=== PATIENT | male | born 1970 | race Hispanic/Latino ===

== ENCOUNTER → 2018-04-03 | Outpatient (CLI) | payer OTHER ==
[2018-04-03 17:39] LABS: FREE T3 2.5 PG/ML (2.2-4.0); THYROID STIMULATING HORMONE 1.53 uIU/ML (0.358-3.740); THYROXINE (T4) 8.7 UG/DL (4.5-12.0)
== END ==
LOC: M LAB 16:30
PROVIDERS: ATTEND Ophthalmology
DX: H49.23 Sixth [abducent] nerve palsy, bilateral (principal)

== ENCOUNTER → 2019-12-10 | Outpatient (CLI) | payer OTHER ==
[~2019-12-10] MED LIST: ASPI-1 PO; ELIQ2.5T PO; IBUP-1022; KEFL500C17 PO; OXYC1TAB23; PERC5TAB12 PO; SULF1TAB93
== END ==
LOC: M LABSMTC 12:46
PROVIDERS: ATTEND Orthopaedic Surgery
DX: Z11.59 Encounter for screening for other viral diseases (principal)

== ENCOUNTER 2019-12-27 15:28 | Inpatient (IN) | payer OTHER ==
[~2019-12-27] VITALS: Ht 170.2 cm; Wt 71.7 kg
[2019-12-27] MEDS ORDERED: OXYC1TAB23 (16:22)
[2019-12-27] MEDS ORDERED: SULF1TAB93 ×2 (16:22)
[2019-12-27] MEDS ORDERED: IBUP-1022 (16:22)
[2019-12-27] MEDS ORDERED: fentaNYL 100 MCG/2 ML INJECTION (J3010) As Ordered ONE (17:29)
[2019-12-27] MEDS ORDERED: MIDAZOLAM INJ 2MG/2ML VIAL (J2250 PER 1MG) As Ordered ONE (17:29)
[2019-12-27] MEDS ORDERED: propofoL 200 MG/20 ML VIAL As Ordered ONE ×2 (17:31→18:53)
[2019-12-27] MEDS ORDERED: LIDOCAINE 2% 100MG/5ML SDV (FOR ANES.) As Ordered ONE (17:31)
[2019-12-27] MEDS ORDERED: ceFAZolin 2 GM/D5W 50 ML IV BAG (J0690 PER 500MG) As Ordered ONE (18:16)
[2019-12-27] MEDS ORDERED: BUPIVACAINE HCL 0.25% 30ML VIAL As Ordered ONE (19:08)
[2019-12-27] MEDS ORDERED: BUPIVACAINE HCL 0.5% 30 ML VIAL As Ordered ONE (19:09)
[2019-12-27] MEDS ORDERED: LR 1,000 ML IV SCH ×2 (19:45→21:30)
[2019-12-27] MEDS ORDERED: ONDANSETRON 4MG/2ML VIAL IV PRN ×2 (19:45→21:30)
[2019-12-27] MEDS ORDERED: oxyCODONE 5MG TAB PO PRN (19:45)
[2019-12-27] MEDS: fentaNYL 100 MCG/2 ML INJECTION (J3010) IV PRN ×4 (19:58→20:19)
[2019-12-27] MEDS: HYDROMORPHONE HCL 0.5 MG/ 0.5 ML SYRINGE (J1170 PER 1) IV PRN ×2 (20:25→20:35)
[2019-12-27 21:06] VITALS: BP 139/96
[2019-12-27] MEDS ORDERED: VANCOMYCIN HCL 750 MG, VIAL MATE ADAPTER 1 EACH in D5W 250 ML IV ONE ×2 (22:00→23:00)
[2019-12-27 22:57] LABS: BLOOD UREA NITROGEN 6 MG/DL (7-18); CALCIUM LEVEL 8.5 MG/DL (8.5-10.1); CARBON DIOXIDE LEVEL 28 MEQ/L (21-32); CHLORIDE LEVEL 102 MEQ/L (98-107); CREATININE FOR GFR 0.74 MG/DL (0.70-1.30); GLOMERULAR FILTRATION RATE > 60.0 (>60); GLUCOSE, FASTING 99 MG/DL (70-100); POTASSIUM SERUM 4.3 MEQ/L (3.5-5.1); SODIUM LEVEL 136 MEQ/L (136-145)
[2019-12-27] MEDS: PERCOCET 5MG/325MG TAB PO PRN (23:26)
[2019-12-28 02:00] VITALS: BP 116/72
[2019-12-28] MEDS: VANCOMYCIN HCL 1,000 MG, VIAL MATE ADAPTER 1 EACH in D5W 250 ML IV SCH ×3 (05:56→21:29)
[2019-12-28 06:00] VITALS: BP 113/72
[2019-12-28] MEDS: PERCOCET 5MG/325MG TAB PO PRN ×3 (06:17→18:47)
[2019-12-28 06:26] LABS: HEMATOCRIT 38.7 % (42.0-52.0); HEMOGLOBIN 12.5 g/dl (13.5-17.5); MEAN CORPUSCULAR HEMOGLOBIN 28.5 pg (27.0-33.0); MEAN CORPUSCULAR HGB CONC 32.3 g/dl (32.0-36.5); MEAN CORPUSCULAR VOLUME 88.2 fl (80.0-96.0); PLATELET COUNT, AUTOMATED 390 10^3/uL (150-450); RED BLOOD COUNT 4.39 10^6/uL (4.30-6.10); WHITE BLOOD COUNT 11.5 10^3/uL (4.0-10.0)
[2019-12-28] MEDS ORDERED: ACETAMINOPHEN TAB 650MG DOSE (2X325MG) PO PRN (06:30)
[2019-12-28 06:50] LABS: ERYTHROCYTE SEDIMENTATION RATE 67 mm/hr (0-15)
[2019-12-28 06:56] LABS: BLOOD UREA NITROGEN 6 MG/DL (7-18); CALCIUM LEVEL 8.3 MG/DL (8.5-10.1); CARBON DIOXIDE LEVEL 28 MEQ/L (21-32); CHLORIDE LEVEL 100 MEQ/L (98-107); CREATININE FOR GFR 0.78 MG/DL (0.70-1.30); GLOMERULAR FILTRATION RATE > 60.0 (>60); GLUCOSE, FASTING 93 MG/DL (70-100); SODIUM LEVEL 136 MEQ/L (136-145)
[2019-12-28] MEDS: ASPIRIN 325 MG TAB PO SCH (08:43)
[2019-12-28 10:00] VITALS: BP 127/75
[2019-12-28 14:00] VITALS: BP 120/74
[2019-12-28] MEDS: cefTRIAXone SOD 2 GM in D5W MINI-BAG PLUS 50 ML IV SCH (16:31)
[2019-12-28 16:45] VITALS: BP 119/82
[2019-12-28 22:00] VITALS: BP 129/77
[2019-12-29] MEDS: PERCOCET 5MG/325MG TAB PO PRN ×4 (02:29→20:19)
[2019-12-29] MEDS: VANCOMYCIN HCL 1,000 MG, VIAL MATE ADAPTER 1 EACH in D5W 250 ML IV SCH ×4 (02:29→20:44)
[2019-12-29 06:00] VITALS: BP 139/74
[2019-12-29] MEDS ORDERED: PERC5TAB12 PO (08:06)
[2019-12-29] MEDS: ASPIRIN 325 MG TAB PO SCH (09:07)
[2019-12-29 14:00] VITALS: BP 120/81
[2019-12-29] MEDS: MORPHINE 4 MG/ML 1ML VIAL/SYRINGE (J2270) IV PRN ×3 (16:31→18:54)
[2019-12-29] MEDS ORDERED: PROHANCE 279.3MG/ML 15ML VIAL As Ordered ONE (17:11)
[2019-12-29] MEDS: cefTRIAXone SOD 2 GM in D5W MINI-BAG PLUS 50 ML IV SCH (17:20)
--- NOTE | 2019-12-29 19:31 | REPVR ---
PROCEDURE INFORMATION: Exam: MR Left Lower Extremity Joint Without and With Contrast, Knee Exam date and time: 12/29/2019 7:02 PM Age: 49 years old Clinical indication: Pain; Knee; Left; Prior surgery; Surgery date: Post-operative (0-2 days); Surgery type: Acl repair on 12/14. Surg again 2 days ago for hematoma. ; Additional info: Left knee infection rule out osteo TECHNIQUE: Imaging protocol: MR of the Left lower extremity joint without and with contrast. Exam focused on the knee. Contrast material: PROHANCE; Contrast volume: 14 ml; Contrast route: INTRAVENOUS (IV); COMPARISON: No relevant prior studies available. FINDINGS: Large knee joint effusion is present, with synovial enhancement suggesting synovitis. Patient has undergone a prior ACL reconstruction. Graft appears somewhat diminutive and there is fluid signal within the tibial and femoral tunnels, with interference screws present. Adjacent significant bone marrow edema within the lateral femoral condyle around the tibial tunnel and to a lesser extent in the medial tibial plateau. No linear fracture or concerning osseous lesion. Gadolinium-enhanced images demonstrate enhancement involving the lateral the distal femur and proximal tibia around the tunnels and there is a peripherally enhancing fluid tract superficial to the tibial tunnel and extending to the skin surface measuring 2 x 2 cm cross-sectional and 3.5 cm craniocaudal. MCL, IT band, fibular collateral ligament, biceps femoris tendon and popliteus tendon appear intact and the PCL shows normal morphology and signal. Lateral meniscus shows normal morphology and signal. Medial meniscus demonstrates intrasubstance posterior horn T2 signal without evidence of a linear communicating tear No high-grade chondral loss involving the knee. IMPRESSION: ACL reconstruction, with large knee joint effusion, and Salas synovitis and concern for osteomyelitis involving the lateral femoral condyle around the femoral tunnel and interference screws, with irregularity of the lateral cortex and significant bone marrow edema and enhancement. Concern for osteomyelitis involving the proximal tibia around the tibial tunnels, with superficial subcutaneous fluid collection with peripheral enhancement which could also be infected. Electronically signed by: Tomás Thurman On 12/29/2019 19:31:43 PM
[2019-12-29] MEDS ORDERED: PERCOCET 5MG/325MG TAB PO PRN (20:00)
[2019-12-29 22:00] VITALS: BP 141/88
[2019-12-29] MEDS: VANCOMYCIN HCL 500 MG in D5W MINI-BAG PLUS 100 ML IV SCH (23:14)
[2019-12-30] MEDS: LR 1,000 ML IV SCH ×2 (00:12→08:55)
[2019-12-30] MEDS: PERCOCET 5MG/325MG TAB PO PRN ×4 (00:19→15:16)
[2019-12-30] MEDS: VANCOMYCIN HCL 1,000 MG, VIAL MATE ADAPTER 1 EACH in D5W 250 ML IV SCH ×2 (02:14→08:55)
[2019-12-30] MEDS: VANCOMYCIN HCL 500 MG in D5W MINI-BAG PLUS 100 ML IV SCH ×2 (04:03→08:55)
[2019-12-30 06:00] VITALS: BP 109/76
--- NOTE | 2019-12-30 07:46 | CR ---
DATE OF CONSULTATION: 12/28/2019 REASON FOR CONSULTATION: Postoperative wound infection. ATTENDING PHYSICIAN: Dr. Robertson HISTORY OF PRESENT ILLNESS: Mr. Ghosh is a 49-year-old man who originally tore his anterior cruciate ligament (ACL) approximately 10 years ago and had an ACL repair. The patient stated that in October 2018 he had reinjured his ACL and had presented to [facility] at the time and had a repair; however, at the time, they had taken out his previous cadaver graft and had filled in holes where screws were present. The patient was planned to have revision of the surgery 6 months from that date; however, COVID had happened, and the patient's surgery was canceled. 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 He was referred to the orthopedic group in [place] for revision of his ACL. He had this completed on December 14. The patient's surgery was uneventful. Approximately 4-7 days after his surgery on December 14 he had developed some pain and swelling in the medial area of his left knee, where his surgery had occurred. The patient had presented to his orthopedic surgeon on December 27, at which point he aspirated the area of swelling, which revealed blood and likely hematoma; however, when placing the aspirate into a bucket, it was noticed that the blood had some cloudy appearance to it. The patient was started on Bactrim for possible infection; however, no cultures were sent, as the cloudiness was demonstrated after placing into the bucket. The patient was continued on Bactrim and was instructed to call his orthopedic surgeon if his pain had worsened or he developed fevers over the weekend. The patient ended up calling in stating that he had worsening pain and swelling. The patient was taken to the operating room (OR) yesterday on December 26 to have the hematoma drained. Additionally, cultures were taken from both the hematoma as well as into the joint space. There was no obvious- looking bone infection, and the site appeared in somewhat good condition. The patient was started on vancomycin empirically. Today, the patient states that he does have left knee pain, which is expected from his surgery. He denies ever having any fevers, chills. He denies any rigors. He states that he has had swelling in his knee for some time. He denies any previous infection of his left knee; however, according to the patient's orthopedic surgeon, it was found that when he had his first surgery at [facility] there was supposedly some form of infection at one point where the patient was treated with antibiotics; however, this is unclear. MEDICAL HISTORY: 1. History of torn ACL 10 years ago with revision in October and then revision again in December 26. 2. History of melanoma on the abdomen, status post resection. SURGICAL HISTORY: 1. Left ACL repair 10 years ago and then a revision in October and then a second revision on December 26. 2. History of melanoma with resection. 3. Left inguinal hernia surgery with mesh placement. 4. Right shoulder surgery. FAMILY HISTORY: The patient denies any family history of coronary artery disease or sudden cardiac . SOCIAL HISTORY: Patient denies any history of smoking or intravenous (IV) illicit drug use. He lives at home with his . He is normally fairy active, however, recently has had decreased activity secondary to his torn ACL. INPATIENT ANTIBIOTICS: - ceftriaxone 2 grams every 24 hours IV - vancomycin 1000 mg every 8 hours IV REVIEW OF SYSTEMS: CONSTITUTIONAL: Patient denies any fevers, chills, nausea, vomiting, decreased appetite or unintentional weight loss or weight gain. HEENT: Patient denies any headaches. Denies any changes in vision. Denies any dysphagia or odynophagia. CARDIOVASCULAR: Patient denies any chest pain, palpitations, feelings of the heart racing. He denies any edema in the legs. PULMONARY: Patient denies any shortness of breath. He denies any cough, wheezing, increased sputum production. ABDOMINAL: Patient denies any abdominal pain. He denies any nausea or vomiting. He denies any constipation, diarrhea. GENITOURINARY: Patient denies any dysuria, increased frequency or urgency. EXTREMITIES: Patient denies any increased lower extremity swelling. He does admit to left knee pain with swelling around his site. He admits to difficulty with ambulation due to this. HEMATOLOGIC/LYMPHATIC: Patient denies any history of easy bruising or bleeding. Denies any history of pulmonary embolus (PE) or deep venous thrombosis (DVT). ENDOCRINE: Patient denies any head intolerance or cold intolerance. PHYSICAL EXAMINATION: VITAL SIGNS: Temperature 98.7, pulse oximetry 96% on room air, pulse 82, respiratory rate 18, blood pressure 119/82. GENERAL: Patient is awake, alert, oriented. He does not appear in any acute distress. He is lying in bed comfortably. He is conversive. HEENT: Atraumatic, normocephalic. Eyes are anicteric. Trachea is midline. Mucous membranes are pink and moist. CARDIOVASCULAR: Normal S1, S2, regular rate and rhythm. No clicks, rubs, or murmurs. PULMONARY: Clear vesicular breath sounds bilaterally. Good respiratory effort. No wheezes, rhonchi, or rales. ABDOMEN: Soft, nondistended, nontender. No rebound tenderness or guarding. Normoactive bowel sounds throughout. EXTREMITIES: Patients left extremity has moderate swelling around the knee. Examination demonstrates one midline incision down his left knee with two incisions laterally and medially to this. A fourth incision is approximately 2 cm inferior to his patella and medial. There is a small amount of erythema surrounding as well as some soft tissue swelling. There is no purulent drainage demonstrated. Patient has full and equal pulse, bilateral upper and lower extremities. NEUROLOGIC: No focal neurologic deficits. PSYCHIATRIC: Mood and affect appear appropriate. LABORATORY STUDIES: Hematology: White blood cells 11.5, hemoglobin 12.5, hematocrit 38.7. Chemistries: Sodium 136, potassium 4.0, chloride 100, carbon dioxide 28, BUN 6, creatinine 0.78, calcium 8.3. Inflammatory markers: ESR 67. CRP from December 26.8. CRP from December 27.1. Microbiology: Gram stain and wound cultures from left knee currently pending. ASSESSMENT AND PLAN: Surgical site infection/postoperative wound infection with hematoma. Patient presented with a hematoma, found to be infected. He has been taken to the OR and had this hematoma evacuated. It appears from surgery that there is no apparent joint infection; however, cultures were taken from both the joint space as well as the aspirate. The patient is on vancomycin. Rocephin 2 grams has been added today for some gram-negative coverage. Regarding the patient's cultures, he had been started on Bactrim outpatient, and it is likely that his cultures will be negative from being on antibiotics before coming to the hospital. Plan is to continue both Rocephin and vancomycin and await cultures to result. If negative, will likely need to great for at least 2 weeks. If positive, this will depend on whether the bacteria is in his joint space, indicating joint infection versus just an infected hematoma. RECOMMENDATIONS: Continue Rocephin 2 grams every 24 hours and vancomycin every 8 hours and await cultures results. Tailor depending on culture results. MTDD
[2019-12-30 08:45] LABS: BLOOD UREA NITROGEN 4 MG/DL (7-18); CALCIUM LEVEL 8.8 MG/DL (8.5-10.1); CARBON DIOXIDE LEVEL 29 MEQ/L (21-32); CHLORIDE LEVEL 97 MEQ/L (98-107); CREATININE FOR GFR 0.57 MG/DL (0.70-1.30); GLOMERULAR FILTRATION RATE > 60.0 (>60); GLUCOSE, FASTING 98 MG/DL (70-100); POTASSIUM SERUM 3.6 MEQ/L (3.5-5.1); SODIUM LEVEL 134 MEQ/L (136-145)
[2019-12-30] MEDS: ASPIRIN 325 MG TAB PO SCH (08:54)
[2019-12-30] MEDS: ceFAZolin SOD 2 GM in IV 1 EA IV SCH ×2 (12:21→17:54)
[2019-12-30 14:00] VITALS: BP 139/83
[2019-12-30] MEDS ORDERED: KEFL500C17 PO (15:08)
[2019-12-30] MEDS ORDERED: KETOROLAC 30 MG/ML 1ML VIAL IV ONE (15:30)
[2019-12-30] MEDS ORDERED: ASPI-1 PO (16:22)
--- NOTE | 2020-01-10 12:56 | RO ---
DATE OF OPERATION: 12/27/2019 PREOPERATIVE DIAGNOSIS: Left knee pretibial hematoma infection. POSTOPERATIVE DIAGNOSIS: Left knee pretibial hematoma infection. PROCEDURE: * Left knee proximal tibial infected hematoma incision and drainage. * Left knee arthroscopic irrigation and debridement. SURGEON: Raghav Farr M.D. ANESTHESIA: Spinal. IV FLUIDS: Lactated Ringers. ESTIMATED BLOOD LOSS: 25 mL IMPLANTS: None. SPECIMEN: Infected hematoma fluid for aerobics, anaerobic, fungal culture x2 and soft tissue for culture, aerobic and anaerobic. CLOSURE: Nylon. INDICATIONS: The patient is a 49-year-old gentleman that underwent a left knee revision, ACL reconstruction with [id number]-myyf autograft and a medial meniscus repair approximately two weeks ago. He initially had had a left knee ACL reconstruction with allograft nine years ago and then had osteolysis of his tunneled, had a bone grafting procedure at [place] over a year ago. He felt that after that procedure, he always had some increased pressure and swelling at the tibial tunnel site. So at the patients postoperative visit, he noticed some swelling and pressure at the old incision, his recent surgical incision and there was some bogginess there. Aspiration in the office revealed findings consistent with a hematoma with possible cloudiness to suggest early secondary infection. He had worsening pain over the weekend and in the office, he had developed a cellulitis at the medial tibial plateau. No sign of infection at his incision, no sign of septic joint. At this point, I recommended incision and drainage of the pretibial fluid collection and a prophylactic irrigation and debridement of the joint to prevent this from turning into a deep infection. He agreed to proceed with surgery after we discussed the risks and benefits. PROCEDURE: In the preoperative holding area, the patients left leg was marked. He was brought to the operating room where spinal anesthesia was induced. Sedation was also initiated. A well-padded tourniquet was applied to the left thigh. He had a grade 1A Anne. The left leg was then prepped and draped in normal sterile fashion with Betadine. Prior to incision, a timeout was performed per hospital protocol. Prophylactic antibiotics were held so we could send cultures. The left leg was exsanguinated via gravity and then inflated to 275 mmHg. A 15 blade was used to make an incision at the distal aspect of his old medial tibial incision. A cloudy hematoma was encountered and this fluid was sent for aerobic and anaerobic and fungal culture. I would estimate that about 3 mL of purulent fluid were evacuated. There was significant thickened scar tissue from his prior surgeries and most of the infected fluid tracked distally towards his old tibial drill site. In case there was any old infection harbored within the old scar tissue, I elected to ellipse out this incision with a 15 blade and all subcutaneous scar tissue was sharply excised. There was minimal purulence proximally. A curette was then used to scrape the deep soft tissues along the medial tibia both proximally and distally. A rongeur was used to remove some scar tissue as well. At this point milking the soft tissues proximally and towards the BTB incision did not reveal any gross purulence. Far distal, I was able to milk out a small amount of cloudy fluid, would suggest the infection as emanating from a distal source. At this point, I was visualizing the SwiveLock anchor which was the backup screw for the tibial fixation. I did not visualize the interference screw or the graft in the tibial tunnel. I then used six liters of irrigation via cystoscopy tubing to irrigate the pretibial tissues and the surgical field. Following the irrigation, new drapes were placed. All gloves were changes and there was no longer any infected fluid or tissue. We then set up for the arthroscopy. An 11 blade was used to open up the prior medial and lateral portals. The 30 degree arthroscope was introduced into the joint. There was scar tissue encountered in all compartments but no evidence of any purulence. The shaver was then used to perform a synovectomy and arthroscopic lysis of adhesions, removing all early scar tissue around the graft, anterior compartment, medial compartment, medial gutter, suprapatellar pouch, lateral gutter and the lateral compartment. The ACL graft was inspected and looked intact and healthy. I used six liters of irrigation. The knee was repeatedly flexed and extended. The popliteal fossa and popliteal hiatus were repeatedly palpated and milked to ensure any pockets of fluid were thoroughly irrigated. Following the irrigation and debridement, the knee was drained. The portals were closed with nylon suture. I then used 2-0 PDS to close the pretibial incision for a subcuticular closure. The central third of that incision was left loosely closed with that 2-0 layer and then I used a new 3-0 Ethibond in a horizontal mattress fashion to close the incision but ensured that at the central aspects, it was easy for any fluid to drain. I then injected 30 mL of 1/2% Marcaine without epinephrine. The tourniquet was let down with excellent reperfusion. A bulky, sterile dressing was applied. He was transferred to the PACU in stable condition. COMPLICATIONS: None. DISPOSITION: The patient is going to be kept for IV antibiotics, specifically for IV vancomycin per pharmacy dosing. We are going to follow up on OR cultures. I should have mentioned that once the OR cultures had been sent, we then administered two grams of IV cefazolin intraoperatively. Once we have an infectious disease consultation and possible OR culture results, we will come up with a definitive antibiotic plan. At this point, there is no evidence for septic arthritis. There is no threatening of the graft, the procedure performed to prevent this from turning into a septic joint. EVIE
--- NOTE | 2020-02-07 07:45 | DS ---
DATE OF ADMISSION: 12/27/2019 DATE OF DISCHARGE: 12/30/2019 ADMITTING DIAGNOSIS: Left knee pretibial hematoma infection. ADDITIONAL DIAGNOSES: None. DISCHARGE DIAGNOSIS: Left knee pretibial hematoma, underlying infection of the left pretibial area as well as underlying osteomyelitis. OPERATION PERFORMED: Left knee proximal tibia infected hematoma incision and drainage as well as left knee arthroscopic irrigation and drainage. HISTORY OF PRESENT ILLNESS: This is a 49-year-old male patient that presented to the office after an ACL revision and reconstruction with increased pain and symptoms consistent with a hematoma, possibly a secondary infection. We then elected to have him undergo an I&D on the left knee, so he was admitted for I&D on the left knee, hematoma of the pretibial area. HOSPITAL COURSE: The patient was admitted on day of surgery, underwent an I&D on the left proximal tibia infected hematoma and left knee arthroscopic I&D of the knee joint. During the postoperative period an MRI was completed and it was consistent with most likely osteomyelitis. Infectious Disease was involved in his care with the recommendations for antibiotic coverage per the I&D Team. On the day of discharge he was 50% weight bearing on the left lower extremity. He will use crutches as directed. He will follow up in our office in 7-10 days. He will also follow up with the Infectious Disease office as well as directed through their office. He will take the oral pain medications for pain control and will also complete the antibiotics as directed by Infectious Disease. He was given instructions to include but not limited to wound monitoring, activity limitations, weight bearing status and his follow up in both our office and with Infectious Disease office. He will also resume any preoperative medications. Please refer to the medical record for further details. NOTE: History of melanoma should be added to the patient's past medical history. EVIE
== END 2019-12-30 19:15 | disposition home or self-care (01) | DRG 857 ==
LOC: M SDC 15:28 → M MSPAV 21:06 → M MS5PR 12-28 16:50 → M SDC 12-29 07:33 → M MS5PR 12-29 07:34
PROVIDERS: ADMIT Orthopaedic Surgery; ATTEND Orthopaedic Surgery
PROC: 0JBP0ZZ Excision of Left Lower Leg Subcutaneous Tissue and Fascia, Open Approach (ICD-10-PCS; principal; 2019-12-27 08:54)
DX: T81.42XA Infection following a procedure, deep incisional surgical site, initial encounter (principal); M96.840 Postprocedural hematoma of a musculoskeletal structure following a musculoskeletal system procedure; L03.116 Cellulitis of left lower limb; Y83.8 Other surgical procedures as the cause of abnormal reaction of the patient, or of later complication, without mention of misadventure at the time of the procedure

== ENCOUNTER → 2020-01-04 | Outpatient (CLI) | payer OTHER | LOC: M LAB 15:09 | PROVIDERS: ATTEND Orthopaedic Surgery | DX: Z47.89 Encounter for other orthopedic aftercare (principal) ==

== ENCOUNTER → 2020-01-25 | Outpatient (CLI) | payer OTHER | LOC: M LAB 12:41 | PROVIDERS: ATTEND Orthopaedic Surgery | DX: S83.512D Sprain of anterior cruciate ligament of left knee, subsequent encounter (principal); X58.XXXD Exposure to other specified factors, subsequent encounter ==

== ENCOUNTER → 2020-01-28 | Outpatient (REF) | payer OTHER ==
[2020-01-28 10:41] LABS: SOURCE, BODY FLUID LFT KNEE; SYNOVIAL FLUID COLOR RED (YELLOW)
[2020-01-28 11:41] LABS: CRYSTALS, BODY FLUID NONE SEEN (NONE SEEN); SOURCE, BODY FLUID CRYSTALS LFT KNEE
[2020-01-28 12:02] LABS: BODY FLUID RHEUMATOID SCREEN NEGATIVE (NEGATIVE); MUCIN CLOT TEST 4+ (4+)
== END ==
LOC: M LAB REF 09:55
PROVIDERS: ATTEND Orthopaedic Surgery
DX: M25.462 Effusion, left knee (principal)

== ENCOUNTER 2020-02-01 18:17 | Inpatient (IN) | payer OTHER ==
[~2020-02-01] VITALS: Ht 170.2 cm; Wt 68.9 kg
[~2020-02-01 18:17] MED LIST changes: -ELIQ2.5T PO
[2020-02-01] MEDS ORDERED: NS 1,000 ML IV SCH (19:00)
[2020-02-01 19:15] LABS: BASO % 0.5 % (0.0-1.0); EOS # 0.1 10^3/uL (0.0-0.5); EOS % 1.7 % (0.0-3.0); HEMATOCRIT 36.5 % (42.0-52.0); HEMOGLOBIN 11.4 g/dl (13.5-17.5); LYMPH # 2.1 10^3/uL (1.5-5.0); LYMPH % 35.4 % (24.0-44.0); MEAN CORPUSCULAR HEMOGLOBIN 26.6 pg (27.0-33.0); MEAN CORPUSCULAR HGB CONC 31.2 g/dl (32.0-36.5); MEAN CORPUSCULAR VOLUME 85.1 fl (80.0-96.0); MONO # 0.5 10^3/uL (0.0-0.8); MONO % 8.8 % (0.0-5.0); NEUTROPHILS # 3.1 10^3/uL (1.5-8.5); NEUTROPHILS % 53.3 % (36.0-66.0); PLATELET COUNT, AUTOMATED 418 10^3/uL (150-450); RED BLOOD COUNT 4.29 10^6/uL (4.30-6.10); WHITE BLOOD COUNT 5.8 10^3/uL (4.0-10.0)
[2020-02-01 19:43] LABS: BLOOD UREA NITROGEN 9 MG/DL (7-18); CALCIUM LEVEL 8.9 MG/DL (8.5-10.1); CARBON DIOXIDE LEVEL 29 MEQ/L (21-32); CHLORIDE LEVEL 101 MEQ/L (98-107); CREATININE FOR GFR 0.62 MG/DL (0.70-1.30); GLOMERULAR FILTRATION RATE > 60.0 (>60); GLUCOSE, FASTING 77 MG/DL (70-100); POTASSIUM SERUM 4.1 MEQ/L (3.5-5.1); SODIUM LEVEL 136 MEQ/L (136-145)
[2020-02-01 21:07] LABS: C REACTIVE PROTEIN QUANTITATIV 3.82 MG/DL (0.00-0.30)
[2020-02-01] MEDS ORDERED: ACETAMINOPHEN 1000MG 100ML IV BTL (OFIRMEV) (J0131 PER 10MG) As Ordered ONE (21:45)
[2020-02-01] MEDS ORDERED: fentaNYL 100 MCG/2 ML INJECTION (J3010) As Ordered ONE (21:45)
[2020-02-01] MEDS ORDERED: dexameTHASONE 4 MG/ML 1ML VIAL (J1100 PER 1MG) As Ordered ONE (21:45)
[2020-02-01] MEDS ORDERED: ONDANSETRON 4MG/2ML VIAL As Ordered ONE (21:45)
[2020-02-01] MEDS ORDERED: propofoL 200 MG/20 ML VIAL As Ordered ONE (21:45)
[2020-02-01] MEDS ORDERED: LIDOCAINE 2% 100MG/5ML SDV (FOR ANES.) As Ordered ONE (21:45)
[2020-02-01] MEDS ORDERED: HYDROmorphone HCL 2 MG/ML 1ML VIAL (J1170) As Ordered ONE (21:45)
[2020-02-01] MEDS ORDERED: ceFAZolin 2 GM/D5W 50 ML IV BAG (J0690 PER 500MG) As Ordered ONE (21:51)
[2020-02-01] MEDS ORDERED: BUPIVACAINE HCL 0.5% 30 ML VIAL As Ordered ONE (21:52)
[2020-02-01] MEDS ORDERED: KETOROLAC 60MG 2ML VIAL As Ordered ONE (22:51)
[2020-02-02] MEDS ORDERED: diphenhydrAMINE 25MG CAP PO PRN (00:45)
[2020-02-02] MEDS ORDERED: fentaNYL 100 MCG/2 ML INJECTION (J3010) IV PRN (00:45)
[2020-02-02] MEDS ORDERED: MEPERIDINE INJ 25 MG/ML VIAL (J2175) IV PRN (00:45)
[2020-02-02] MEDS ORDERED: MIRALAX *UNIT DOSE* 17GM PACKET PO PRN (00:45)
[2020-02-02] MEDS ORDERED: PERCOCET 5MG/325MG TAB PO PRN (00:45)
[2020-02-02] MEDS ORDERED: MORPHINE 4 MG/ML 1ML VIAL/SYRINGE (J2270) IV PRN (00:45)
[2020-02-02] MEDS ORDERED: oxyCODONE 5MG TAB PO PRN (00:45)
[2020-02-02] MEDS ORDERED: METOCLOPRAMIDE INJ 10MG/2ML VIAL (J2765 PER 1) IV PRN (00:45)
[2020-02-02] MEDS ORDERED: MOM 30ML SUSPENSION UDC PO PRN (00:45)
[2020-02-02] MEDS ORDERED: LR 1,000 ML IV SCH ×2 (00:45)
[2020-02-02] MEDS ORDERED: ONDANSETRON 4MG/2ML VIAL IV PRN ×3 (00:45→02:00)
[2020-02-02 03:00] VITALS: BP 109/79
[2020-02-02] MEDS: ceFAZolin SOD 2 GM in IV 1 EA IV SCH ×3 (03:05→21:12)
[2020-02-02 04:00] VITALS: BP 111/78
[2020-02-02 05:00] VITALS: BP 107/68
[2020-02-02 06:00] VITALS: BP 109/71
[2020-02-02 06:12] LABS: HEMATOCRIT 30.9 % (42.0-52.0); HEMOGLOBIN 9.9 g/dl (13.5-17.5); MEAN CORPUSCULAR HEMOGLOBIN 26.9 pg (27.0-33.0); PLATELET COUNT, AUTOMATED 365 10^3/uL (150-450); RED BLOOD COUNT 3.68 10^6/uL (4.30-6.10); WHITE BLOOD COUNT 5.6 10^3/uL (4.0-10.0)
[2020-02-02 06:39] LABS: ALBUMIN 2.8 GM/DL (3.2-5.2); ALT/SGPT 13 U/L (12-78); BILIRUBIN,DIRECT < 0.1 MG/DL (0.0-0.2); BILIRUBIN,TOTAL 0.3 MG/DL (0.2-1.0); BLOOD UREA NITROGEN 7 MG/DL (7-18); C REACTIVE PROTEIN QUANTITATIV 2.71 MG/DL (0.00-0.30); CALCIUM LEVEL 8.3 MG/DL (8.5-10.1); CARBON DIOXIDE LEVEL 26 MEQ/L (21-32); CHLORIDE LEVEL 102 MEQ/L (98-107); CREATININE FOR GFR 0.52 MG/DL (0.70-1.30); GLOMERULAR FILTRATION RATE > 60.0 (>60); GLUCOSE, FASTING 106 MG/DL (70-100); POTASSIUM SERUM 4.6 MEQ/L (3.5-5.1); SODIUM LEVEL 134 MEQ/L (136-145); TOTAL PROTEIN 6.5 GM/DL (6.4-8.2)
[2020-02-02 06:46] LABS: ERYTHROCYTE SEDIMENTATION RATE 53 mm/hr (0-15)
[2020-02-02] MEDS: ASPIRIN 81 MG CHEW TABLET PO SCH ×2 (09:09→21:12)
[2020-02-02] MEDS ORDERED: LIDOCAINE 1% MDV 20ML VIAL As Ordered ONE (10:51)
--- NOTE | 2020-02-02 12:22 | RO ---
DATE OF OPERATION: 02/01/2020 PREOPERATIVE DIAGNOSES: 1. Left knee septic arthritis. 2. Left knee pretibial fluid collection. POSTOPERATIVE DIAGNOSES: 1. Left knee septic arthritis. 2. Left knee pretibial fluid collection. 3. Left knee loose hardware. PROCEDURES: 1. Left knee arthroscopic incision and debridement, extensive synovectomy, chondroplasty and lysis of adhesions. 2. Left knee open incision and drainage of a pretibial fluid collection. 3. Left knee hardware removal. SURGEON: Raghav Farr MD DECK CADET: None. ANESTHESIA: General. IV FLUIDS: Lactated Ringer's. ESTIMATED BLOOD LOSS: 25 mL. SPECIMEN: Pretibial fluid collection x2 and left knee joint fluid x1 and left knee synovial tissue x2. DRAINS: Moe-Rivas x1. CLOSURE: Nylon. DESCRIPTION OF PROCEDURE: The patient was identified in the preoperative holding area and a written informed consent was obtained for surgery after discussing the risks and benefits. He was brought back to the operating room and placed supine on a well-padded OR table. General anesthesia was induced. A well-padded tourniquet was applied to the left thigh. The patient had full extension/flexion to 80 degrees despite being able to flex are recently has last week past 100. Stable to varus and valgus stress. The left leg was then prepped and draped in a normal sterile fashion. Preoperative antibiotics were held in order to send specimens. Timeout was then performed per hospital protocol. The left leg was exsanguinated via gravity and then a tourniquet inflated to 250 mmHg. A 15 blade was used to open the pretibial incision, the same incision as his last surgery. There was scant purulence basically a very superficial blister with scant purulence there. Metzenbaum scissors were used to dissect down to bone where there was no purulent fluid but there was some devitalized tissue that appeared infected. It was of a mucinous exudate-type consistency. The SwiveLock anchor for backup fixation was visualized. The sutures heading into the SwiveLock appeared loose. So, a combination of curettes and rongeur were then used to remove all infected-looking tissue; curettes were used to scrape the surgical field and then extending proximally towards the screw in the tibia. I then irrigated with nine liters of lactated Ringer's with cystoscopy tubing. Following this, one additional pocket of infected fluid was then encountered far medial basically tracking along the hamstrings. So, that was opened with Metzenbaum scissors then bluntly and then I irrigated with an additional three liters for a total of 12 liters. There was no remaining infected tissue or fluid. I should mention I had already excised with a 15 blade the skin edges where he had the superficial blister where there was the grossly purulent fluid, though it was very superficial. The computer systems technology instructor and myself changed gloves at this point and new drapes were placed. An anterolateral portal was made with an 11-blade and a 30-degree arthroscope introduced into the joint. There was extensive synovitis. There was cloudy fluid in the joint. Medial portal was developed under direct visualization and then an extensive synovectomy was carried out including the anterior compartment, superior pouch, medial and lateral gutters, medial and lateral compartment and then the posterior compartment was irrigated. So, the shaver was used to perform that extensive synovectomy. Great care was taken to remove all scar tissue or fibrinous-appearing tissue. Chondroplasty was performed in the far medial aspect of the medial femoral condyle. The medial meniscus repair was intact. The ischial graft was still intact. This was probed and found to be under good tension. Arthroscopy portals were switched and then the gutters were debrided further with the shaver. Again, this was a very extensive synovectomy. I then probed around the anterior cruciate ligament (ACL) insertion onto the femur and the tibia and then posteriorly the probe was used to break up any fluid in the posterior compartment. The scope was then placed down towards the popliteal hiatus and the posterior aspect of the knee was milked in case there was any infected fluid and a Tinoco's cyst; however, the patient's MRI this morning did not show one. So, I used nine liters of lactated Ringer's during this process. The patient did have improved range of motion to 110 degrees now. The patient still had a grade 1A Anne. It did feel slightly looser than pre-incision. At this point, I reinspected the tibial incision and the sutures heading into the SwiveLock remained lax and the SwiveLock anchor was loose. Therefore, I elected to use a tenodesis flag car driver to remove the SwiveLock in its entirety. I carefully assessed Anne's and I was placed with the end point. Sutures heading to the SwiveLock were also removed, and then I curetted the screw hole where the SwiveLock had been and then re-irrigated that as well. Gloves were changed again. Following additional irrigation of the tibial incision, I then placed the scope back into the joint. There was no unhealthy-appearing tissue. I felt that the ACL graft had good tension, the medial meniscal repair was intact other than some mild chondromalacia at the far medial aspect of the femoral condyle. There were no areas of high-grade chondromalacia, no evidence of chondrolysis. I then placed a size 19 drain under arthroscopic guidance exiting superolaterally at the femur. The drain was placed to bulb suction. I then closed the proximal tibial incision with 2-0 Monocryl and then running 3- 0 nylon, both monofilament sutures. I injected roughly 20 mL of 0.5% Marcaine without epinephrine at the incisions and into the joint. Tourniquet was let down with excellent reperfusion. I should have mentioned that following sending of the specimens for culture, we did administer 2 grams of IV cefazolin. Bulky sterile dressing was applied. The patient had a grade 1A Anne and he wasextubated and transferred to the post anesthesia care unit (PACU) in stable condition. DISPOSITION: We will obtain and infectious disease consultation. He will remain on 2 grams of IV cefazolin every 8 hours as his prior cultures grew out Methicillin-sensitive staph aureus (MSSA). The patient will require a PICC line from discussion for daptomycin. We will follow up on cultures postop day one. He will have aspirin for deep vein thrombosis (DVT) prophylaxis. He should work on range of motion and will be partial weightbearing. EVIE
[2020-02-02 15:41] VITALS: BP 116/74
--- NOTE | 2020-02-02 15:42 | REP ---
PROCEDURE NAME: PICC LINE INSERTION W/SITERITE SEDATION: None CLINICAL INFORMATION: Status post left knee infection PHYSICIAN: ESA Dugan PROCEDURE DESCRIPTION: The procedure was performed by ESA Acosta, under the direct supervision of Dr. Mcdaniels. The risks and benefits of the procedure were explained to the patient and an informed consent was obtained both verbally and written. Directly prior to the start of the procedure a formal time-out was completed in the procedure room. The right brachial vein was localized using ultrasound guidance. The skin was prepped and draped in sterile fashion. One mL of 1% lidocaine 10 mg/mL was used as a local anesthetic. Using ultrasound guidance the right brachial vein was cannulated, and a 0.018 guidewire was inserted and advanced to the level of SVC using fluoroscopic guidance. The needle was removed and a 4.5 Wallisian dilator and peel-away sheath was inserted over the guidewire. A 4.5 Wallisian single lumen catheter was cut to a length of 40 cm. The dilator was removed and the catheter was inserted over the guidewire with the tip ending at the level of the SVC. The peel-away sheath was removed and the catheter was flushed with heparinized saline as per hospital protocol. The catheter was affixed to the skin and a sterile dressing was applied. The patient tolerated the procedure well and there were no immediate complications. ESTIMATED BLOOD LOSS: Less than 5 mL COMPLICATIONS: None CONCLUSION: Successful PICC line insertion into the right brachial vein 0.1 minutes of fluoroscopy time was utilized for this procedure. Some fluoroscopic images are performed with last image hold technology. These images require no additional radiation. <Electronically signed by Kirsten Lamb > 02/02/20 1530 <Electronically signed by Scott Mcdaniels > 02/02/20 1539
[2020-02-02] MEDS ORDERED: SODIUM CHLORIDE 0.9% INJ 10 ML SYR IV PRN (18:45)
[2020-02-02 22:00] VITALS: BP 115/74
[2020-02-03] MEDS: ceFAZolin SOD 2 GM in IV 1 EA IV SCH ×3 (04:44→20:25)
[2020-02-03] MEDS: PERCOCET 5MG/325MG TAB PO PRN ×2 (04:44→20:25)
[2020-02-03] MEDS: SODIUM CHLORIDE 0.9% INJ 10 ML SYR IV SCH ×2 (04:47→18:18)
[2020-02-03] MEDS ORDERED: PERC5TAB12 PO ×2 (06:05→06:12)
[2020-02-03 06:48] VITALS: BP 115/75
[2020-02-03] MEDS ORDERED: ELIQ2.5T PO (07:48)
[2020-02-03] MEDS: ASPIRIN 81 MG CHEW TABLET PO SCH ×2 (10:11→20:25)
[2020-02-03 14:00] VITALS: BP 117/69
[2020-02-03 22:00] VITALS: BP 115/75
[2020-02-04] MEDS: SODIUM CHLORIDE 0.9% INJ 10 ML SYR IV SCH (05:00)
[2020-02-04] MEDS: ceFAZolin SOD 2 GM in IV 1 EA IV SCH (05:00)
[2020-02-04 06:00] VITALS: BP 108/73
[2020-02-04] MEDS: ASPIRIN 81 MG CHEW TABLET PO SCH (09:06)
== END 2020-02-04 13:00 | disposition home or self-care (01) | DRG 487 ==
LOC: M ED 18:17 → M SDC 18:18 → M MS5PR 02-02 01:22 → M SDC 02-02 10:05 → M ED INP 02-02 10:06 → M MS5PR 02-02 12:38
PROVIDERS: ADMIT Orthopaedic Surgery; ATTEND Orthopaedic Surgery
PROC: 0SQD4ZZ Repair Left Knee Joint, Percutaneous Endoscopic Approach (ICD-10-PCS; 2020-02-01)
PROC: 0QP Lower Bones, Removal (ICD-10-PCS; 2020-02-01)
PROC: 0SBD4ZZ Excision of Left Knee Joint, Percutaneous Endoscopic Approach (ICD-10-PCS; principal; 2020-02-01 20:00)
DX: M00.862 Arthritis due to other bacteria, left knee (principal)

== ENCOUNTER → 2020-02-01 | Outpatient (REF) | payer OTHER ==
[2020-02-01 16:04] LABS: CRYSTALS, BODY FLUID NONE SEEN (NONE SEEN); SOURCE, BODY FLUID LFT KNEE; SOURCE, BODY FLUID CRYSTALS LFT KNEE; SYNOVIAL FLUID COLOR AMBER (YELLOW)
[2020-02-01 16:07] LABS: SOURCE, BODY FLUID GLUCOSE LFT KNEE
[2020-02-02 07:29] LABS: BODY FLUID RHEUMATOID SCREEN NEGATIVE (NEGATIVE)
[2020-02-02 07:30] LABS: MUCIN CLOT TEST 4+ (4+)
== END ==
LOC: M LAB REF 15:26
PROVIDERS: ATTEND Orthopaedic Surgery
DX: M25.462 Effusion, left knee (principal)

== ENCOUNTER → 2020-02-07 | Outpatient (REF) | payer OTHER ==
[~2020-02-07] MED LIST changes: +ELIQ2.5T PO
== END ==
LOC: M LAB REF 17:45
PROVIDERS: ATTEND Orthopaedic Surgery
DX: L08.9 Local infection of the skin and subcutaneous tissue, unspecified (principal)

== ENCOUNTER → 2020-02-14 | Outpatient (REF) | payer OTHER | LOC: M LAB REF 14:08 | PROVIDERS: ATTEND Orthopaedic Surgery | DX: L08.9 Local infection of the skin and subcutaneous tissue, unspecified (principal); M01.X Direct infection of joint in infectious and parasitic diseases classified elsewhere ==

== ENCOUNTER → 2020-02-21 | Outpatient (REF) | payer OTHER | LOC: M LAB REF 16:31 | PROVIDERS: ATTEND Orthopaedic Surgery | DX: M00.9 Pyogenic arthritis, unspecified (principal) ==

== ENCOUNTER → 2020-02-28 | Outpatient (REF) | payer OTHER | LOC: M LAB REF 18:37 | PROVIDERS: ATTEND Orthopaedic Surgery | DX: A49.01 Methicillin susceptible Staphylococcus aureus infection, unspecified site (principal); M01.X62 Direct infection of left knee in infectious and parasitic diseases classified elsewhere ==

== ENCOUNTER → 2020-03-06 | Outpatient (REF) | payer OTHER ==
[2020-03-06 19:38] LABS: BASO % 0.3 % (0.0-1.0); EOS # 0.1 10^3/uL (0.0-0.5); EOS % 2.4 % (0.0-3.0); HEMATOCRIT 37.7 % (42.0-52.0); HEMOGLOBIN 11.7 g/dl (13.5-17.5); LYMPH # 1.9 10^3/uL (1.5-5.0); MEAN CORPUSCULAR HEMOGLOBIN 26.9 pg (27.0-33.0); MEAN CORPUSCULAR VOLUME 86.7 fl (80.0-96.0); MONO # 0.4 10^3/uL (0.0-0.8); NEUTROPHILS # 3.4 10^3/uL (1.5-8.5); NEUTROPHILS % 57.8 % (36.0-66.0); PLATELET COUNT, AUTOMATED 293 10^3/uL (150-450); RED BLOOD COUNT 4.35 10^6/uL (4.30-6.10); WHITE BLOOD COUNT 5.9 10^3/uL (4.0-10.0)
[2020-03-06 20:00] LABS: ERYTHROCYTE SEDIMENTATION RATE 19 mm/hr (0-15)
[2020-03-06 20:04] LABS: BLOOD UREA NITROGEN 9 MG/DL (7-18); CALCIUM LEVEL 8.8 MG/DL (8.5-10.1); CARBON DIOXIDE LEVEL 27 MEQ/L (21-32); CHLORIDE LEVEL 102 MEQ/L (98-107); CREATININE FOR GFR 0.63 MG/DL (0.70-1.30); GLOMERULAR FILTRATION RATE > 60.0 (>60); GLUCOSE, FASTING 101 MG/DL (70-100); POTASSIUM SERUM 3.9 MEQ/L (3.5-5.1); SODIUM LEVEL 136 MEQ/L (136-145)
== END ==
LOC: M LAB REF 19:04
PROVIDERS: ATTEND Internal Medicine Infectious Disease
DX: M00.062 Staphylococcal arthritis, left knee (principal)
CPT/HCPCS: 80048; 85025; 85652; 86140; G0463

== ENCOUNTER → 2020-03-13 | Outpatient (REF) | payer OTHER ==
[2020-03-13 19:22] LABS: BASO % 0.4 % (0.0-1.0); EOS # 0.2 10^3/uL (0.0-0.5); EOS % 3.4 % (0.0-3.0); HEMATOCRIT 38.9 % (42.0-52.0); HEMOGLOBIN 11.9 g/dl (13.5-17.5); LYMPH % 44.7 % (24.0-44.0); MEAN CORPUSCULAR HEMOGLOBIN 26.3 pg (27.0-33.0); MEAN CORPUSCULAR HGB CONC 30.6 g/dl (32.0-36.5); MEAN CORPUSCULAR VOLUME 86.1 fl (80.0-96.0); MONO # 0.4 10^3/uL (0.0-0.8); MONO % 9.7 % (0.0-5.0); NEUTROPHILS # 1.8 10^3/uL (1.5-8.5); NEUTROPHILS % 41.4 % (36.0-66.0); PLATELET COUNT, AUTOMATED 309 10^3/uL (150-450); RED BLOOD COUNT 4.52 10^6/uL (4.30-6.10); WHITE BLOOD COUNT 4.5 10^3/uL (4.0-10.0)
[2020-03-13 19:47] LABS: BLOOD UREA NITROGEN 10 MG/DL (7-18); C REACTIVE PROTEIN QUANTITATIV 0.72 MG/DL (0.00-0.30); CALCIUM LEVEL 8.6 MG/DL (8.5-10.1); CARBON DIOXIDE LEVEL 28 MEQ/L (21-32); CHLORIDE LEVEL 102 MEQ/L (98-107); CREATININE FOR GFR 0.62 MG/DL (0.70-1.30); GLOMERULAR FILTRATION RATE > 60.0 (>60); GLUCOSE, FASTING 91 MG/DL (70-100); POTASSIUM SERUM 4.5 MEQ/L (3.5-5.1); SODIUM LEVEL 135 MEQ/L (136-145)
[2020-03-13 20:04] LABS: ERYTHROCYTE SEDIMENTATION RATE 17 mm/hr (0-15)
== END ==
LOC: M LAB REF 18:59
PROVIDERS: ATTEND Orthopaedic Surgery
DX: M00.062 Staphylococcal arthritis, left knee (principal); M01.X62 Direct infection of left knee in infectious and parasitic diseases classified elsewhere

== ENCOUNTER → 2020-03-15 | Outpatient (CLI) | payer OTHER ==
[~2020-03-15] MED LIST changes: +PROHANCE 279.3MG/ML 15ML VIAL As Ordered ONE
--- NOTE | 2020-03-15 14:09 | REP ---
INDICATION: LT KNEE STAPHYLOCOCCAL ARTHRITIS. Patient status post an anterior cruciate ligament repair December 15, 2019. Reoperation 2 days later for hematoma evacuation. Staphylococcal arthropathy. COMPARISON: Comparison MRI studies are from February 01, 2020 and December 29, 2019.. TECHNIQUE: Axial, coronal, and sagittal imaging planes utilized. T1, proton density and T2 weighted scans are included with without fat saturation. The gadolinium enhancement dose is 14 mL of intravenous ProHance. Post gadolinium enhanced coronal and axial images are obtained. FINDINGS: The patient is status post anterior cruciate ligament repair. There is a little less T2 hyperintense material surrounding the proximal tibial tendon anchor in the tibial tunnel and similarly, surrounding the femoral segment of the tendon and its associated anchoring device when compared with the most recent prior study. This suggests improvement. There is still adjacent marrow edema and contrast enhancement adjacent to and along the tibial tunnel and distal femoral tunnel. Metallic artifact is seen from orthopedic anchor ring devices and to a lesser extent micrometallic artifact is seen in the periarticular soft tissues. Postsurgical changes are noted in the anterior aspect of the patella and along the midportion of the patellar tendon. There is diffuse synovial thickening and contrast enhancement in the suprapatellar bursa and there is a small to moderate persistent joint effusion. This is somewhat complex with membrane like low signal intensity material within it. The ACL tendon transfer graft appears somewhat attenuated and shows a linear pattern of intrasubstance increased signal intensity. This is similar to the prior study. Posterior cruciate ligament is unremarkable. Patellar tendon is otherwise intact. Quadriceps tendon is unremarkable. There is no evidence of medial or lateral collateral ligament disruption. There is a complex tear of the infra posterior horn of the medial meniscus with increased signal intensity extending to the inferior articular surface. There is marrow edema pattern in the posterior aspect of the tibial plateau medially adjacent to this. The previously noted fracture line is less conspicuous than on February 01, 2020 study. The T2 hyperintense presumed fluid collection in the superficial soft tissues anterior to the tibial and of the tibial tunnel has resolved. No other extra articular fluid collection is appreciated. There is some diffuse periarticular edema and contrast enhancement. No soft tissue abscess is seen. There is evidence of persistent chronic synovitis. IMPRESSION: Complex postoperative findings. There is less granulation tissue and/or fluid surrounding the hardware in the tibial and femoral tunnels than was visible on February 01, 2020 study. This implies improvement. The subcutaneous fluid collection adjacent to the anterior tibia noted previously has resolved. There is a posterior horn tear medial meniscus. Persistent synovitis and joint effusion. <Electronically signed by Juan Fiore > 03/15/20 [id number]
== END ==
LOC: M RAD 09:36
PROVIDERS: ATTEND Internal Medicine Infectious Disease
DX: M00.062 Staphylococcal arthritis, left knee (principal); M25.462 Effusion, left knee; M65.162 Other infective (teno)synovitis, left knee; Z98.890 Other specified postprocedural states
CPT/HCPCS: 73723; A9576; J1642

== ENCOUNTER → 2020-03-19 | Outpatient (REF) | payer OTHER ==
[~2020-03-19] MED LIST changes: -PROHANCE 279.3MG/ML 15ML VIAL As Ordered ONE
== END ==
LOC: M LAB REF 15:16
PROVIDERS: ATTEND Orthopaedic Surgery
DX: M00.062 Staphylococcal arthritis, left knee (principal); M01.X62 Direct infection of left knee in infectious and parasitic diseases classified elsewhere; A49.01 Methicillin susceptible Staphylococcus aureus infection, unspecified site

== ENCOUNTER → 2020-04-12 | Outpatient (CLI) | payer OTHER ==
[2020-04-12 17:25] LABS: BASO % 0.4 % (0.0-1.0); EOS # 0.2 10^3/uL (0.0-0.5); EOS % 3.8 % (0.0-3.0); HEMATOCRIT 41.3 % (42.0-52.0); HEMOGLOBIN 12.9 g/dl (13.5-17.5); LYMPH # 2.4 10^3/uL (1.5-5.0); LYMPH % 49.8 % (24.0-44.0); MEAN CORPUSCULAR HEMOGLOBIN 27.3 pg (27.0-33.0); MEAN CORPUSCULAR HGB CONC 31.2 g/dl (32.0-36.5); MEAN CORPUSCULAR VOLUME 87.5 fl (80.0-96.0); MONO # 0.4 10^3/uL (0.0-0.8); MONO % 8.6 % (0.0-5.0); NEUTROPHILS # 1.8 10^3/uL (1.5-8.5); NEUTROPHILS % 37.2 % (36.0-66.0); PLATELET COUNT, AUTOMATED 283 10^3/uL (150-450); RED BLOOD COUNT 4.72 10^6/uL (4.30-6.10); WHITE BLOOD COUNT 4.8 10^3/uL (4.0-10.0)
[2020-04-12 17:45] LABS: ERYTHROCYTE SEDIMENTATION RATE 10 mm/hr (0-15)
== END ==
LOC: M LAB 17:07
PROVIDERS: ATTEND Internal Medicine Infectious Disease
DX: M00.062 Staphylococcal arthritis, left knee (principal)

== ENCOUNTER → 2020-04-17 | Outpatient (REF) | payer OTHER ==
[2020-04-17 18:03] LABS: SOURCE, BODY FLUID LFT KNEE; SYNOVIAL FLUID COLOR ORANGE (YELLOW)
[2020-04-17 18:04] LABS: CRYSTALS, BODY FLUID NONE SEEN (NONE SEEN); SOURCE, BODY FLUID CRYSTALS LFT KNEE; SOURCE, BODY FLUID GLUCOSE LFT KNEE
[2020-04-17 18:05] LABS: BODY FLUID RHEUMATOID SCREEN QNS (NEGATIVE); MUCIN CLOT TEST QNS (4+)
== END ==
LOC: M LAB REF 17:06
PROVIDERS: ATTEND Physician Assistant
DX: M25.462 Effusion, left knee (principal)
CPT/HCPCS: 82945; 83872; 86430; 87070; 87205; 89051; 89060; G0463

== ENCOUNTER → 2020-05-05 | Outpatient (CLI) | payer OTHER ==
--- NOTE | 2020-05-05 09:54 | REP ---
INDICATION: LT KNEE PAIN, EVAL FOR INTERNAL DERANGEMENT. COMPARISON: 03/15/2020. TECHNIQUE: Multiple sequences obtained in the axial, coronal and sagittal planes. FINDINGS: Menisci: Once again there is a tear of the posterior horn of the medial meniscus, which appears unchanged compared to the prior study. There is no evidence of lateral meniscal tear with no change since prior study. Cruciate ligaments: Intact. Collateral ligaments: Intact. Extensor mechanism/patellar retinacula: Intact. Cartilage: [id number] diffuse, global chondromalacia appears unchanged. Bone marrow: There are areas of marrow edema in the distal femur and proximal tibia which appear unchanged. Joint fluid: There is a small complex joint effusion which has decreased since the prior study. Diffuse soft tissue edema has almost completely resolved. Popliteal region: No cyst. Surgical hardware in the distal femur and proximal tibia appears unchanged. IMPRESSION: Small complex joint effusion has decreased in size since the prior exam. Diffuse soft tissue edema has almost completely resolved. Complex tear posterior horn medial meniscus and diffuse chondromalacia of appears similar to prior study. <Electronically signed by Scott Mcdaniels > 05/05/20 [id number]
== END ==
LOC: M RAD 07:10
PROVIDERS: ATTEND Orthopaedic Surgery
DX: M25.562 Pain in left knee (principal); M25.462 Effusion, left knee; S83.232A Complex tear of medial meniscus, current injury, left knee, initial encounter; X58.XXXA Exposure to other specified factors, initial encounter; Y92.9 Unspecified place or not applicable; M94.262 Chondromalacia, left knee

== ENCOUNTER → 2020-05-09 | Outpatient (CLI) | payer OTHER ==
[2020-05-09 13:34] LABS: HEMATOCRIT 42.3 % (42.0-52.0); HEMOGLOBIN 13.2 g/dl (13.5-17.5); MEAN CORPUSCULAR HEMOGLOBIN 26.7 pg (27.0-33.0); MEAN CORPUSCULAR HGB CONC 31.2 g/dl (32.0-36.5); MEAN CORPUSCULAR VOLUME 85.5 fl (80.0-96.0); PLATELET COUNT, AUTOMATED 264 10^3/uL (150-450); RED BLOOD COUNT 4.95 10^6/uL (4.30-6.10); WHITE BLOOD COUNT 4.1 10^3/uL (4.0-10.0)
[2020-05-09 14:21] LABS: ERYTHROCYTE SEDIMENTATION RATE 7 mm/hr (0-15)
== END ==
LOC: M LAB 12:46
PROVIDERS: ATTEND Internal Medicine Infectious Disease
DX: M00.062 Staphylococcal arthritis, left knee (principal)